=== PATIENT | female | born 2000 | race Caucasian/White ===

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

== ENCOUNTER 2020-11-18 02:49 | Emergency (ER) | payer MEDICAID ==
[~2020-11-18] VITALS: Ht 152.4 cm; Wt 95.2 kg
--- NOTE | 2020-11-18 03:43 | ED Back Pain ---
General Chief Complaint: Back Problems Stated Complaint: LOWER BACK PAIN Nursing Triage Note: Pt ambulatory into ER with complaint of right flank pain x1.5 hours. Pt states that she woke up with a new pain in the right flank and she got on web MD and the possibilities scared her so she came to the ER. Nursing Sepsis Screen: No Definite Risk Source of Information: Patient Exam Limitations: No Limitations (KRISTINA CHEW MED STUDENT) History of Present Illness Date Seen by Provider: Nov 18, 2020 Time Seen by Provider: 03:30 Initial Comments Pt is a 20yo female with PMH of pseudotumor cerebri who presents to the ED complaining of right sided flank pain. She states that she was having cramps and lower back soreness yesterday and thought this was caused by her period which she started yesterday. She woke up around 1:30am with sharp, 9/10 flank pain this morning. She states she took 2 tyelenol around 1:45 and this has decreased her pain only a little. Currently rates pain 5/10. Pain does not radiate anywhere. She denies any dysuria or increased urinary frequency but states she is on a diuretic so she always urinates frequently. She denies fever, chills or chest pain. Reports some SOB and nausea that also started around 1:30 when she woke up. Location: Other (R flank) Timing/Duration: 1-3 Hours Severity: Mild Pain/Injury Location: Back (KRISTINA CHEW MED STUDENT) Allergies and Home Medications Allergies Coded Allergies: No Known Drug Allergies (Unverified Allergy, Mild, 03/05/09) Home Medications Acetazolamide 250 Mg Tablet, 500 MG PO BID Prescribed by: BRE COATES on 12/13/19 0236 Phenazopyridine Hcl 100 Mg Tablet, 100 MG PO TID Prescribed by: MICHAEL MONTIEL on 03/05/09 234 Trimethoprim/Sulfamethoxazole 1 Ea Tablet, 1 EA PO BID Prescribed by: MICHAEL MONTIEL on 03/05/09 234 Patient Home Medication List Home Medication List Reviewed: Yes (BRE VALENCIA MD) Review of Systems Constitutional: No chills, No fever, No weakness Respiratory: No cough; short of breath Cardiovascular: No chest pain, No edema Gastrointestinal: No abdominal pain, No constipation, No diarrhea; nausea; No vomiting Genitourinary: No discharge, No dysuria; frequency (reports as baseline due to diuretics), other (unable to tell if blood in urine due to menstruation) Musculoskeletal: back pain (R flank) Psychiatric/Neurological: Anxiety; Denies Numbness, Denies Tingling (KRISTINA CHEW MED STUDENT) Past [id number]-Vkojnf Hx Patient Social History Alcohol Use: Denies Use 2nd Hand Smoke Exposure: No Recent Infectious Disease Expo: No Recent Hopitalizations: No (KRISTINA CHEW MED STUDENT) Immunizations Up To Date Tetanus Booster (TDap): Less than 5yrs PED Vaccines UTD: Yes (KRISTINA CHEW MED STUDENT) Seasonal Allergies Seasonal Allergies: No (KRISTINA CHEW MED STUDENT) Past Medical History Surgeries: No Respiratory: No Cardiac: Yes Hypertension Neurological: Yes (Ideopathic Intracranial Hypertension ) Headaches /Migraines Last Menstrual Period: Nov 18, 2020 Genitourinary: No Gastrointestinal: No Musculoskeletal: No Endocrine: No HEENT: No Cancer: No Psychosocial: Yes Anxiety Integumentary: No Blood Disorders: No Adverse Reaction/Blood Tranf: No (KRISTINA CHEW MED STUDENT) Physical Exam Vital Signs Vital Signs - First Documented 11/18/20 03:03 Temp 36.3 Pulse 80 Resp 16 B/P (MAP) 147/87 (107) Pulse Ox 99 O2 Delivery Room Air (BRE VALENCIA MD) Vital Signs Capillary Refill : Less Than 3 Seconds (KRISTINA CHEW MED STUDENT) Height, Weight, BMI Height: '" Weight: lbs. oz. kg; 40.00 BMI Method: General Appearance: No Apparent Distress, WD/WN HEENT: PERRL/EOMI Neck: Full Range of Motion, Non Tender, Supple Cardiovascular: Regular Rate, Rhythm, No Murmur Respiratory: Lungs Clear, No Accessory Muscle Use, No Respiratory Distress Gastrointestinal: Normal Bowel Sounds, Soft, Tenderness (suprapubic with deep palpation) Back: No Vertebral Tenderness, CVA Tenderness (R); No Decreased Range of Motion Extremity: Normal Capillary Refill, Normal Range of Motion, Non Tender Neurologic/Psychiatric: Alert, Oriented x3, No Motor/Sensory Deficits, Normal Mood/Affect Skin: Normal Color, Warm/Dry (KRISTINA CHEW MED STUDENT) Progress/Results/Core Measures Results/Orders Lab Results Laboratory Tests Test 11/18/20 04:58 Range/Units Urine Color KAE H Urine Clarity SL CLOUDY Urine pH 6.0 5-9 Urine Specific Maribel 1.025 H 1.016-1.022 Urine Protein TRACE H NEGATIVE Urine Glucose (UA) NEGATIVE NEGATIVE Urine Ketones NEGATIVE NEGATIVE Urine Nitrite NEGATIVE NEGATIVE Urine Bilirubin NEGATIVE NEGATIVE Urine Urobilinogen 0.2 < = 1.0 MG/DL Urine Leukocyte Esterase NEGATIVE NEGATIVE Urine RBC (Auto) 3+ H NEGATIVE Urine RBC 50-100 H /HPF Urine WBC NONE /HPF Urine Squamous Epithelial Cells 0-2 /HPF Urine Crystals PRESENT H /LPF Urine Amorphous Sediment LARGE SHANITA URATES H /LPF Urine Bacteria NEGATIVE /HPF Urine Casts NONE /LPF Urine Mucus NEGATIVE /LPF Urine Culture Indicated NO (BRE VALENCIA MD) My Orders Orders - BRE VALENCIA MD Ua Culture If Indicated (11/18/20 02:59) (BRE VALENCIA MD) Vital Signs/I&O 11/18/20 11/18/20 03:03 06:27 Temp 36.3 Pulse 80 92 Resp 16 18 B/P (MAP) 147/87 (107) 147/87 Pulse Ox 99 98 O2 Delivery Room Air Room Air (BRE VALENCIA MD) Blood Pressure Mean: 107 Progress Progress Note : Time: 06:15 Progress Note Urine was unremarkable except for blood which is likely related to her menstrual cycle. Patient reports her pain is only 2/10 at this time. Reexamination reveals some mild point tenderness to the right of the lumbar spine. She has no tenderness in the flank or abdomen. (BRE VALENCIA MD) Departure Impression Primary Impression: Right low back pain Qualified Codes: M54.5 - Low back pain Disposition: 01 HOME, SELF-CARE Condition: Stable Departure-Patient Inst. Decision time for Depature: 06:14 (BRE VALENCIA MD) Referrals: MEGGAN LO DO (PCP/Family) Primary Care Physician Patient Instructions: Low Back Pain in Adults Add. Discharge Instructions: Avoid strenuous activity, heavy lifting, or repeated bending until your pain resolves. For treatment of pain you may take a combination of Tylenol (acetaminophen) up to 1000 mg every 6 hours as needed and/or ibuprofen up to 600 mg every 6 hours as needed. Gentle heat over the affected area may also help muscles relax and alleviate pain. Promptly return to the emergency room if you develop weakness in your legs, changes in bowel or bladder control, or numbness in your groin. Call with questions or concerns. Return to care with any other concerning symptoms. All discharge instructions reviewed with patient and/or family. Voiced understanding. Medical Student Attestation and Attending Note: I have personally interviewed and examined this patient along with Kristina Chew, MS 4. I have reviewed student documentation including history, physical, and assessments. I agree with the documentation except where otherwise noted. Exam: General: Alert, oriented, no acute distress, well developed HEENT: Normocephalic and atraumatic Heart: Regular rate and rhythm without murmur Lungs: Clear to auscultation bilaterally with normal effort Abdomen: Soft, nontender, nondistended, normal bowel sounds Neuropsych: Alert, oriented, no focal deficits Back: Mild tenderness to the right of the lumbar spine. No vertebral tenderness. (BRE VALENCIA MD) Copy Copies To 1: MEGGAN LO HEATHER,MED STUDENT Nov 18, 2020 03:43 BRE VALENCIA MD Nov 18, 2020 06:16
[2020-11-18 05:26] LABS: BILIRUBIN,URINE NEGATIVE (NEGATIVE); CLARITY,URINE SL CLOUDY; COLOR,URINE AMBER; GLUCOSE, URINE (UA) NEGATIVE (NEGATIVE); KETONES,URINE NEGATIVE (NEGATIVE); LEUKOCYTE ESTERASE ,URINE NEGATIVE (NEGATIVE); NITRITE,URINE NEGATIVE (NEGATIVE); PROTEIN,URINE TRACE (NEGATIVE)
[2020-11-18 05:42] LABS: AMORPHOUS SEDIMENT,UR LARGE AMOR URATES /LPF; BACTERIA,URINE NEGATIVE /HPF; RBC,URINE 50-100 /HPF; SQUAMOUS EPITHELIAL CELL,UR 0-2 /HPF
[2020-11-18 06:27] VITALS: BP 147/87
== END 2020-11-18 06:27 | disposition home or self-care (01) ==
LOC: EDUNIT# 02:49 → ER 02:52
DX: M54.5 Low back pain (principal); I10 Essential (primary) hypertension
CPT/HCPCS: 81000; 99282